=== PATIENT | male | born 1965 | race Caucasian/White ===

== ENCOUNTER → 2017-12-05 16:36 | Outpatient (CLI) | payer OTHER, SELFPAY ==
[2017-12-05 18:09] LABS: Absolute Lymphocyte Count 2.56 X10^3/ul (0.83-4.51); Absolute Neutrophil Count 3.7 X10^3/uL (2.0-7.7); Basophil# 0.02 X10^3/uL; Basophil% 0.3 % (0-1); Eosinophils% 1.4 % (0-5); Hematocrit 44.9 % (40-54); Lymphocyte # 2.56 X10^3/ul (4.0); Lymphocyte % 36.4 % (19-41); Mean Corp Hgb Conc 33.4 g/gl (32-36); Mean Corpuscular Hgb 30.2 pg (27.0-32.0); Mean Corpuscular Volume 90.5 fL (80-94); Monocyte# 0.68 X10^3/uL; Monocyte% 9.7 % (0-10); Neutrophil # 3.66 X10^3/uL (2.7-7.7); Neutrophil % 52.1 % (47-70); Platelet Count 262 K/mm3 (150-450); RBC Distribution Width CV 12.9 % (11.6-14.6); RBC Distribution Width SD 42.2 fl (35.1-43.9); Red Blood Count 4.96 M/mm3 (4.6-6.2)
[2017-12-05 18:11] LABS: POSITIVE COUNT NO; POSITIVE DIFFERENTIAL NO; POSITIVE MORPHOLOGY NO
[2017-12-05 18:31] LABS: ALB/GLOB Ratio 1.2 RATIO (0.9-2.4); AST(SGOT) 20 U/L (15-37); Alanine Aminotransfer ALT/SGPT 24 U/L (16-61); Albumin, Serum 4.1 g/dL (3.2-5.0); Alkaline Phosphatase 81 U/L (45-117); Anion Gap 8 (5-15); BUN 15 mg/dL (7-18); BUN/Creat Ratio 14.3 RATIO (10-20); Calcium,Total 9.2 mg/dL (8.5-10.1); Chloride 103 mmol/L (98-107); Cholesterol 131 mg/dL (200); Creatinine, Serum 1.05 mg/dL (0.70-1.30); EST Glomerular Filtration Rate 79 mL/min (>60); Est Glom Filt Rate - Afr Amer 95 mL/min (>60); Globulin 3.5 g/dL (2.2-4.2); Glucose 79 mg/dL (74-106); High Density Lipoprotein 41 mg/dL; Potassium 3.8 mmol/L (3.5-5.1); Protein, Total 7.6 g/dL (6.4-8.2); Sodium Level 139 mmol/L (136-145); Triglycerides 139 mg/dL; Very Low Density Lipoprotein 28 mg/dL (5-40)
== END ==
PROVIDERS: Family Provider Family Medicine; PCP Family Medicine; Visit Provider Family Medicine
DX: Z00.00 Encounter for general adult medical examination without abnormal findings (principal); Z12.5 Encounter for screening for malignant neoplasm of prostate
CPT/HCPCS: 36415; 80053; 80061; 84153; 85025; G0103

== ENCOUNTER 2017-12-22 08:04 | Day surgery (SDC) | payer OTHER, SELFPAY ==
[2017-12-22 08:30] VITALS: BP 143/83; PULSE 82; RESP 18; TEMP 36.3; O2SAT 100; BMI 25.8
--- NOTE | 2017-12-22 09:09 | H&P.OPEN ---
Past Medical/Surgical History - Planned Operation Planned Operative Procedure/s: COLONOSCOPY Date of Operative Procedure: 12/22/17 Permit Signed: Yes S.O.S: No Is This Patient Having a Total Joint: No - Previous Hospitalizations/Surgeries HX of Surgeries: APPY. WRIST Any Problems With Anesthesia: No You/Your Family Experience Fever (Hyperthermia) With Anes: No Cholinesterase deficiency: No - Cardiovascular Hx Chest Pain within Last 2 months: No Hx of Irregular Heartbeat and/or Afib: No Hx Heart Attack: No Hx Congestive Heart Failure: No Hx Rheumatic Fever: No Hx Hypertension: No Hx Internal Defibrillator: No Hx Pacemaker: No Hx Cardiac Catheterization: No Hx Cardiac Surgery/Stents/Etc.: No Hx Stress Test: No HX Edema: No Hx Pain in Legs when Walking/Leg Cramps: No - Respiratory Chronic Cough: No HX of Shortness of Breath: No Hoarseness: No Hx Chronic Obstructive Pulmonary Disease (COPD): No Hx Asthma: No Hx Emphysema: No Hx Sleep Apnea: No Hx Oxygen Use at Home: No Hx Respiratory Tract Infection/Cold (presently): No Do You Snore Loudly (louder than talking or can be heard): No Do You Often Feel Tired/ Fatigued/ Sleepy Dring Daytime?: No Has Anyone Observed You Stop Breathing During Sleep?: No Result (for STOP score): Negative Hx Smoking: No Smoking Status: Never smoker - Gastrointestinal Hx Gastroesophageal Reflux: No Hx Gastrointestinal Disorders: No Hx Gastrointestinal Bleed: No Hx Ulcer: No Hx Hiatal Hernia: No Difficulty Chewing/Swallowing: No Recent Onset of Swallowing Problems: No Special diet followed at home: No Hx Unplanned Weight Loss of 20#: No HX Unplanned Weight Gain of 20#: No - Neurological Hx Seizures: No HX Syncope/Blackout Spells/Unconsciousness: No Hx CVA/Stroke: No Hx Transient Ischemic Attacks (TIA): No Hx Multiple Sclerosis: No Hx Parkinson's Disease: No Hx Head/Neck Injury: No Hx Headaches: No Hx Back Injury/Pain: No Recent Onset of Speech Difficulty: No Restless Legs: No Does patient have nerve stimulator: No - Blood Disorder Hx Leukemia: No Bleeding Tendencies: No Hx Deep Vein Thrombosis: No Hx High Cholesterol: No Blood Transmitted Disease: No Hx Hepatitis: No Hx Cirrhosis: No Hx Anemia: No Hx Blood Disorders: No - Genitourinary Hx Renal Disease: No - Musculoskeletal Hx Arthritis: Yes - GENERALIZED Hx Rheumatoid Arthritis: No Hx Gout: No Recent Onset of an Orthopedic Problem: No - Endocrine Hx Diabetes: No Thyroid Disease: No Hx Steroid Therapy: No - Psycho/Social Hx Substance Use: No Hx Alcohol Use: No Hx Anxiety: No Hx Depression: No Mental Illness: No Hx Dementia: No - Miscellaneous Hx Cancer: No Recent Exposure to Contagious Disease: No Active MRSA: No Hx of C-Diff: No Any Loose Teeth: No Allergies No Known Allergies Allergy (Verified 06/19/16 23:12) Home Medications Medication Instructions Recorded None 12/22/17 - Discharge Is Pt Admitted From a Group Home, or a Intermediate: No Who Could Help: -AZAEL After D/C, Where Do you Plan to Go: Return Home - Physical Exam General: Alert, Oriented x3, Cooperative Neck: Supple Lungs: Normal air movement Cardiovascular: Regular rate, Regular Rhythm Abdomen: Soft, Non Tender, Non-Distended Vital Signs Temp Pulse Resp BP Pulse Ox 97.4 F L 82 18 143/83 H 100 12/22/17 08:30 12/22/17 08:30 12/22/17 08:30 12/22/17 08:30 12/22/17 08:30 Oxygen Delivery Method Room Air Weight: 165 lb Body Mass Index (BMI) 25.8 Assessment/Plan 52-year-old male for screening colonoscopy. 1. Patient reports he is having no issues at this time. He reports no abdominal pain or blood in his stool. He has no family history of colon cancer. He has never had a colonoscopy in the past. 2. I explained endoscopy in detail to the patient. I explained the risks including but not limited to stroke or heart attack with anesthesia, perforation of the GI tract, bleeding, infection. I explained that any of these could necessitate further emergency surgery. The patient understands and all questions were answered sufficiently. The patient wishes to proceed with procedure. Eb Peña MD Pager: [facility] [address] [place] [address], [address] [place] [address] Office: Surgery Risks - Colonoscopy Risks Include but are not Limited To: Risks include but are not limited to: Bleeding, perforation requiring further surgery, inability to complete colonoscopy requiring barium enema.
[2017-12-22 09:38] VITALS: BP 125/85; BP 143/83; PULSE 90; RESP 18; TEMP 36.1; O2SAT 100
[2017-12-22 09:43] VITALS: BP 128/94; BP 143/83; PULSE 85; RESP 18; O2SAT 100
[2017-12-22 09:48] VITALS: BP 118/85; BP 143/83; PULSE 79; RESP 18; O2SAT 100
[2017-12-22 09:52] VITALS: BP 141/85; BP 143/83; PULSE 77; RESP 18; TEMP 36.3; O2SAT 100
[2017-12-22 10:02] VITALS: BP 143/83
--- NOTE | 2017-12-22 10:46 | PCM.OPRPT ---
Problem List (1) Screening for colon cancer Status: Acute Report of Operation Date of Procedure: 12/22/17 Pre-Operative Diagnosis: Colon cancer screening Post-Operative Diagnosis: Normal colonoscopy Surgery/Procedure Performed:: Colonoscopy Specimen's removed: None Description of Procedure: The major risks and benefits associated with the procedure were explained to the patient in detail. The patient verbalized understanding and agreement with the same. The patient was brought to the endoscopy suite. After adequate sedation was achieved, the patient was placed in the left lateral decubitus position and a digital rectal exam was performed. This examination was within normal limits. A well-lubricated colonoscope was then inserted into the rectum and advanced under direct visualization to the level of the cecum. The bowel prep was good. The cecum was identified by both visual and anatomic landmarks. A photograph was taken of the end of the cecum. The scope was then fully withdrawn while examining the color, texture, anatomy and integrity of the mucosa from the cecum to the anal canal. The findings were consistent with normal colonic mucosa. Over 6 minutes were taken to examine the colonic mucosa. Upon reaching the rectum the scope was retroflexed to examine the distal rectal vault. The scope was then straightened and was completely retrieved upon exiting the anal canal and the procedure was terminated. The patient was then transferred to the recovery room in stable condition. Recommendations for follow up: 10 years
== END 2017-12-22 10:06 | disposition home or self-care (01) ==
LOC: EN 08:07 → AC 08:08
PROVIDERS: Family Provider Family Medicine; PCP Family Medicine; Visit Provider Surgery
PROC: 0DJD8ZZ Inspection of Lower Intestinal Tract, Via Natural or Artificial Opening Endoscopic (ICD-10-PCS; CPT 45378; principal; 2017-12-22 09:10)
DX: Z12.11 Encounter for screening for malignant neoplasm of colon (principal); M15.9 Polyosteoarthritis, unspecified
CPT/HCPCS: 45378; J7120

== ENCOUNTER → 2019-01-05 09:01 | Outpatient (CLI) | payer OTHER, SELFPAY ==
[2019-01-05 09:34] LABS: Absolute Lymphocyte Count 1.82 X10^3/ul (0.83-4.51); Absolute Neutrophil Count 2.5 X10^3/uL (2.0-7.7); Basophil# 0.03 X10^3/uL; Basophil% 0.6 % (0-1); Eosinophil# 0.14 X10^3/uL; Eosinophils% 2.8 % (0-5); Hematocrit 44.5 % (40-54); Hemoglobin 15.5 g/dl (13.0-16.5); Lymphocyte # 1.82 X10^3/ul (4.0); Lymphocyte % 35.8 % (19-41); Mean Corp Hgb Conc 34.8 g/gl (32-36); Mean Corpuscular Hgb 30.2 pg (27.0-32.0); Mean Corpuscular Volume 86.7 fL (80-94); Mean Platelet Vol. 9.7 fl (6.2-12.0); Monocyte# 0.56 X10^3/uL; Neutrophil # 2.52 X10^3/uL (2.7-7.7); Neutrophil % 49.6 % (47-70); Platelet Count 251 K/mm3 (150-450); RBC Distribution Width SD 40.4 fl (35.1-43.9); Red Blood Count 5.13 M/mm3 (4.6-6.2); White Blood Count 5.1 K/mm3 (4.4-11.0)
[2019-01-05 09:35] LABS: POSITIVE COUNT NO; POSITIVE DIFFERENTIAL NO; POSITIVE MORPHOLOGY NO
[2019-01-05 10:00] LABS: PSA,Total - Annual Screen 0.71 ng/mL (0.00-4.00)
== END ==
PROVIDERS: Family Provider Family Medicine; PCP Family Medicine; Referring Provider Family Medicine; Visit Provider Family Medicine
DX: Z00.00 Encounter for general adult medical examination without abnormal findings (principal); Z12.5 Encounter for screening for malignant neoplasm of prostate
CPT/HCPCS: 36415; 84153; 85025; G0103

== ENCOUNTER 2019-11-19 10:22 | Emergency (ER) | payer OTHER, SELFPAY ==
[2019-11-19] VITALS (7 sets, daily range): BP systolic 136–143; BP diastolic 86–100; PULSE 76–91; RESP 14–18; TEMP 36.1; O2SAT 97–99; BMI 28.7
--- NOTE | 2019-11-19 10:37 | EKG12_ITS ---
Test Reason : CP Blood Pressure : / mmHG Vent. Rate : 086 BPM Atrial Rate : 086 BPM P-R Int : 148 ms QRS Dur : 088 ms QT Int : 334 ms P-R-T Axes : 036 034 040 degrees QTc Int : 399 ms Normal sinus rhythm Normal ECG Confirmed by RYAN DAVISON, LYNETTE ([id number]), editor farm journal MAY WHIPPLE ([id number]) on 11/21/2019 10:31:08 AM Referred By: RAMESH/LYN Confirmed By:LYNETTE DAVIS MD
--- NOTE | 2019-11-19 10:37 | ED.VIS.CHEST ---
History of Present Illness Chief Complaint: Chest Pain Informant: Patient Quality: Burning, Pain Location: Right Chest, Left Chest Current Severity: Moderate Narrative: Patient presents the emergency department for the evaluation of chest pain. Patient states that on Monday evening he went for a walk with his for about a half a mile he developed a burning sensation across the anterior aspect of his chest. He took his blood pressure and the diastolic number was around 100-1 05. He remembered that a couple years ago he was hospitalized at [place] with similar symptoms and after a negative stress test was felt that his symptoms were related to his hypertension. Therefore he took an extra dose of his blood pressure medication and got better. It has been intermittently present yesterday but today at 0600 when he was getting ready for work he developed the same sensation is now been constant pain for 4.5 hours. Addition to the burning sensation across the anterior chest he feels a pain which she states is difficult to describe in the left axilla. He has a history of hypertension. He notes his cholesterol was checked in the past and was normal. He is a non-smoker. He does not live a sedentary lifestyle. Nothing he does seem to make the pain better or worse. No PE DVT risk factor. No history of aortic dissection or aneurysm. Past Medical History - Allergies and Home Meds Allergies/Adverse Reactions: Allergies No Known Allergies Allergy (Verified 11/19/19 10:22) Primary Care Physician: Martin Ratliff DO [Primary Care Provider] - Smoking Status: Never smoker Review of Systems General: Denies: Chills, Fever, Sweats Eyes: Denies: Visual changes - bilaterally, Diplopia ENT: Denies: Rhinorrhea, Sore throat Cardiovascular: Reports: Chest pain. Denies: Palpitations Respiratory: Denies: Dyspnea, Cough, Dyspnea on exertion Gastrointestinal: Denies: Abdominal pain, Nausea, Vomiting, Diarrhea, Melena, Hematochezia Genitourinary: Denies: Dysuria, Hematuria, Frequency Musculoskeletal: Denies: Back pain, Extremity Pain Skin: Denies: Rash, Wounds Neurological: Denies: Headache, Weakness, Numbness Physical Exam Vital Signs/Narrative: Vital Signs Temp Pulse Resp BP Pulse Ox 11/19/19 10:23 97 F L 91 15 143/100 H 97 Inital Vital Signs reviewed: Yes General: Well nourished, Well developed, No Acute Distress Head: Normocephalic, Atraumatic Eyes: Perrl, EOMI ENT: Moist mucous membranes, No rhinorrhea Neck: Supple, Nontender Cardiovascular: Regular rate, Regular rhythm, No murmurs Respiratory: No distress, CTA bilaterally, Chest nontender Abdomen: Soft, Nontender, Nondistended, Normal bowel sounds Back: Nontender, Normal Inspection Extremities: Nontender, No edema Skin: Normal color, No rash Neurological: Alert, Oriented x3, Cranial nerves II-XII grossly intact, Normal Strength, Normal Sensation Psychological: Normal affect, Normal Mood Diagnostic/Tx/Re-eval - EKG Initial EKG Interpretation: Sinus Rhythm - EKG shows a normal sinus rhythm at a rate of 86 without ectopy or concerning features for ACS. This is compared to an EKG dated 12 August 2011. No significant changes JACQUE Risk: No Positive JAQCUE Elements Score: 0 - Medical Decision Making Patient was watched on the monitor is had no events. His chest x-ray shows a normal mediastinal silhouette, no evidence of pneumothorax or infiltrates. No evidence of mediastinitis. D-dimer is in the normal range. 2 sets of cardiac enzymes the second being drawn 6 hours from the onset of symptoms were negative. His blood pressures come down now 136/95. He has had some improvement in the burning across his chest but no resolution. I spoke with Dr. Ratliff. He notes that the patient is taking 50 mg of metoprolol once a day. Patient Monday as well as today took a total of 100 does not feel sluggish or any negative side effects. We are going to have the patient to record his blood pressure over the next week and call with those results. He may call earlier if his blood pressure is out of control. Return if worsening or concerns. ED Disposition - Plan for ED Patient: Diagnosis: Chest pain, Hypertension Instructions: ED Chest Pain Atypical Unkn Cause, ED Hypertension Established Referrals: Martin Ratliff DO [Primary Care Provider] - Additional Instructions: Your blood pressure was elevated today. In discussing with your physician we are going to have you monitor your blood pressure for the next week and record it each day. Please also record the time that you take it in which arm. Please call your doctor next week with these results. If however you are finding that your blood pressure is significantly elevated you may call earlier than 1 week. But at this time we do not wish to make any adjustments to that medication.
--- NOTE | 2019-11-19 10:45 | RAD_ITS ---
STUDY: X-RAY CHEST REASON FOR EXAM: Male, 54 years old. CP SINCE MONDAY. BURNING SENSATION ACROSS CHEST AND NEEDLING FEELING UNDER LEFT ARM. DIZZINESS TECHNIQUE: Single AP portable view of the chest. COMPARISON: Comparison is made with prior examination dated August 12, 2011. FINDINGS: EKG electrodes are seen. The lungs are clear and expanded. Scattered calcified granulomas. No acute abnormality is seen. There is no demonstrated pleural abnormality. Normal size heart. Normal mediastinum and gibran. Normal visualized pulmonary arteries. Normal visualized aortic arch and descending thoracic aorta. Normal visualized thoracic spine. Normal visualized ribs, clavicles, and shoulders. There is no demonstrated abnormality of the visualized soft tissue structures of the upper abdomen. RAD/Chest 1 View (Portable) IMPRESSION: No acute abnormality is seen. Electronically Signed: Nahid Mendoza, at 11:29 EDT , Service support ,
[2019-11-19 10:47] LABS: Absolute Lymphocyte Count 1.58 X10^3/uL (0.83-4.51); Absolute Neutrophil Count 3.3 X10^3/uL (2.0-7.7); Basophil# 0.03 X10^3/uL; Basophil% 0.5 % (0-1); Eosinophil# 0.09 X10^3/uL; Eosinophils% 1.6 % (0-5); Hematocrit 46.3 % (40-54); Hemoglobin 15.6 g/dL (13.0-16.5); Lymphocyte # 1.58 X10^3/ul (4.0); Lymphocyte % 28.5 % (19-41); Mean Corp Hgb Conc 33.7 g/dL (32-36); Mean Corpuscular Hgb 30.3 pg (27.0-32.0); Mean Corpuscular Volume 89.9 fL (80-94); Mean Platelet Vol. 9.4 fl (6.2-12.0); Monocyte# 0.53 X10^3/uL; Monocyte% 9.6 % (0-10); NRBC Flagged by Analyzer 0 % (0-5); Neutrophil # 3.28 X10^3/uL (2.7-7.7); Neutrophil % 59.3 % (47-70); Platelet Count 252 K/mm3 (150-450); RBC Distribution Width CV 12.2 % (11.6-14.6); RBC Distribution Width SD 40.2 fl (35.1-43.9); Red Blood Count 5.15 M/mm3 (4.6-6.2); White Blood Count 5.5 K/mm3 (4.4-11.0)
[2019-11-19 10:55] LABS: D-Dimer Quantitative (DVT/PE) 0.28 FEU/ug/m (0.27-0.49)
[2019-11-19 10:59] LABS: Anion Gap 5 (5-15); BUN 13 mg/dL (7-18); BUN/Creat Ratio 16.7 RATIO (10-20); Calcium,Total 9.2 mg/dL (8.5-10.1); Chloride 106 mmol/L (98-107); Creatinine, Serum 0.78 mg/dL (0.70-1.30); EST Glomerular Filtration Rate 110 mL/min (>60); Est Glom Filt Rate - Afr Amer 133 mL/min (>60); Estimated Creatinine Clearance 100.04 ml/min; Glucose 101 mg/dL (74-106); Potassium 4.1 mmol/L (3.5-5.1); Sodium Level 138 mmol/L (136-145)
== END 2019-11-19 13:15 | disposition home or self-care (01) ==
PROVIDERS: Emergency Provider Emergency Medicine; PCP Family Medicine
DX: R07.9 Chest pain, unspecified (principal); I10 Essential (primary) hypertension
CPT/HCPCS: 71045; 80048; 84484; 85025; 85379; 93005; 99284; A4216

== ENCOUNTER 2021-11-08 04:23 | Emergency (ER) | payer OTHER, SELFPAY ==
[2021-11-08 04:25] VITALS: BP 144/101; PULSE 112; RESP 15; TEMP 36.4; O2SAT 98; BMI 28.8
--- NOTE | 2021-11-08 04:50 | EKG12_ITS ---
Test Reason : GEN ILL Blood Pressure : / mmHG Vent. Rate : 097 BPM Atrial Rate : 097 BPM P-R Int : 146 ms QRS Dur : 088 ms QT Int : 340 ms P-R-T Axes : 038 052 051 degrees QTc Int : 431 ms Normal sinus rhythm Normal ECG Confirmed by RYAN DAVISON, LYNETTE ([id number]), editor farm journal CRUZ BARONE ([id number]) on 11/10/2021 11:31:13 AM Referred By: HINA Confirmed By:LYNETTE DAVIS MD
[2021-11-08] MEDS: Labetalol (Prefilled) 20 MG/4 ML IV (05:02)
[2021-11-08 05:04] LABS: Absolute Lymphocyte Count 0.96 X10^3/uL (0.83-4.51); Absolute Neutrophil Count 11.1 X10^3/uL (2.0-7.7); Basophil# 0.05 X10^3/uL; Basophil% 0.4 % (0-1); Eosinophil# 0.11 X10^3/uL; Eosinophils% 0.8 % (0-5); Hematocrit 46.6 % (40-54); Lymphocyte # 0.96 X10^3/ul (0.83-4.51); Lymphocyte % 7.4 % (19-41); Mean Corp Hgb Conc 34.3 g/dL (32-36); Mean Corpuscular Hgb 30.6 pg (27.0-32.0); Mean Corpuscular Volume 89.1 fL (80-94); Mean Platelet Vol. 9.8 fl (6.2-12.0); Monocyte# 0.73 X10^3/uL; Monocyte% 5.6 % (0-10); NRBC Flagged by Analyzer 0 % (0-5); Neutrophil # 11.07 X10^3/uL (2.7-7.7); Neutrophil % 85.3 % (47-70); Platelet Count 273 K/mm3 (150-450); RBC Distribution Width CV 12.5 % (11.6-14.6); RBC Distribution Width SD 41.1 fl (35.1-43.9); Red Blood Count 5.23 M/mm3 (4.6-6.2)
[2021-11-08 05:05] VITALS: BP 138/94; PULSE 100; RESP 14; O2SAT 99
--- NOTE | 2021-11-08 05:17 | RAD_ITS ---
EXAM: X-ray chest PA and lateral. HISTORY: hypertension TECHNIQUE: XR Chest 2 Views COMPARISON: Portable upright exam November 19, 2019. LIMITATIONS: None. HEART: Normal size. TUBES/LINES: None. LUNGS: Normal. PLEURA: Normal. MEDIASTINUM: Normal. BONES/SOFT TISSUES: Normal. OTHER: Normal. IMPRESSION: Normal chest. Electronically Signed: Maliha Issa MD at 5:41 EDT , RAD/Chest PA and Lateral
[2021-11-08 05:21] LABS: Anion Gap 6 (5-15); BUN 14 mg/dL (7-18); BUN/Creat Ratio 14.1 RATIO (10-20); Chloride 107 mmol/L (98-107); Creatinine, Serum 0.99 mg/dL (0.70-1.30); EST Glomerular Filtration Rate 83 mL/min (>60); Est Glom Filt Rate - Afr Amer 100 mL/min (>60); Estimated Creatinine Clearance 76.97 ml/min; Glucose 136 mg/dL (74-106); Potassium 3.8 mmol/L (3.5-5.1); Sodium Level 139 mmol/L (136-145); Troponin-I HS < 3 pg/mL (3.0-78.0)
--- NOTE | 2021-11-08 05:34 | EX.ED.DYSGE1 ---
HPI History of Present Illness Chief Complaint: General Illness Narrative Narrative: Patient is a 56-year-old male with past medical history of hypertension. He states he starts work early at 3:30 in the morning. He reports he got up as he normally does and went to work this morning. 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 He states that he stopped and symptoms resolved however once he tried stacking boxes the flushed/warm sensation occurred again. He states he checked his blood pressure and it was elevated. He reports a history of hypertension but states that he took his medications approximately an hour prior to arrival. He denies any chest pain or shortness of breath associated with this he denies any sick symptoms. However because he had that flushing sensation with exertion and his pressure was elevated he presents to the hospital for evaluation [facility] Home Medications metoprolol tartrate 50 mg PO DAILY 11/19/19 [History Last Taken Unknown] lisinopril 10 mg PO DAILY 11/08/21 [History Last Taken Unknown] Allergy/AdvReac Type Severity Reaction Status Date / Time No Known Allergies Allergy Verified 11/08/21 04:28 Social History Smoking Status: Never smoker [facility] ED Constitutional Constitutional ED: Denies chills or fever(s) ENT ENT ED: Denies sore throat Cardiovascular Cardiovascular: Denies chest pain Respiratory/Chest Respiratory/Chest: Denies cough or dyspnea Gastrointestinal Gastrointestinal: Denies abdominal pain, diarrhea, nausea or vomiting Genitourinary Genitourinary ED: Denies dysuria Musculoskeletal Musculoskeletal: Denies myalgias Integumentary Denies rash Neurologic Neurologic: Denies headache(s) Hematologic/Lymphatic Hematologic/Lymphatic: Denies easy bleeding or easy bruising EXAM Physical Exam Const Vital Signs: 11/08/21 04:25 11/08/21 04:32 11/08/21 05:05 Temperature 97.5 F L Temperature Source Temporal Pulse Rate 112 H 100 Respiratory Rate 15 14 Respiratory Effort Normal Non-Labored Respiratory Pattern Normal Blood Pressure 144/101 H 138/94 H Blood Pressure Mean 115 108 Pulse Ox 98 99 Oxygen Delivery Method Room Air Room Air 11/08/21 05:53 Temperature Temperature Source Pulse Rate 99 Respiratory Rate 15 Respiratory Effort Respiratory Pattern Blood Pressure 124/77 H Blood Pressure Mean 92 Pulse Ox 97 Oxygen Delivery Method Room Air Positive well nourished and well developed General Appearance ED: well developed HEENT Reports moist mucous membranes Eyes PERRL and EOMs intact bilaterally Neck supple Chest Wall palpation of chest normal Resp normal respiratory effort and clear to auscultation bilaterally Cardio regular rhythm Rate: tachycardic and other Other Details: Radial pulses are +2-4 bilaterally are equal and symmetric GI non-tender and non-distended Auscultation: normoactive bowel sounds Palpation: soft Extremity normal to inspection Neuro oriented x3 and CN's II-XII intact bilaterally Sensorium / Orientation: alert Psych mental status grossly normal Skin no rashes or lesions noted MDM MDM MDM Narrative Medical decision making narrative: Patient presented to the ER mildly hypertensive and slightly tachycardic but afebrile. He had a normal neurologic exam as well as no physical exam or history findings concerning for endorgan damage. He reported a flushing or warm sensation throughout his body with exertion which is nonspecific and he has had no sick symptoms. Therefore at this time as the patient's blood pressure is elevated I did feel need to check for signs of endorgan damage or atypical presentation for cardiac event. The patient's white count is elevated at 13 which could just be stress response as there is no left shift. He has no signs of acute kidney injury and his troponin and EKG are normal. Because of the elevated white count a chest x-ray was obtained even though patient is not coughing and it showed no obvious infection. Patient was given mild hydration and labetalol and did have improvement of his blood pressure and heart rate. Therefore at this time with no signs of endorgan damage by exam and work-up do not feel there is need for continued evaluation in the ER and patient can be discharged home at this time Lab Data Attestation: I reviewed the patient's lab results. Labs: Laboratory Results - last 24 hr 11/08/21 11/08/21 04:40 04:40 WBC 13.0 H RBC 5.23 Hgb 16.0 Hct 46.6 MCV 89.1 MCH 30.6 MCHC 34.3 RDW Std Deviation 41.1 RDW Coeff of Allen 12.5 Plt Count 273 MPV 9.8 Immature Gran % (Auto) 0.500 Neut % (Auto) 85.3 H Lymph % (Auto) 7.4 L [place] % (Auto) 5.6 Eos % (Auto) 0.8 Baso % (Auto) 0.4 Absolute Neuts (auto) 11.1 H Absolute Lymphs (auto) 0.96 Nucleated RBC % 0 Sodium 139 Potassium 3.8 Chloride 107 Carbon Dioxide 26.0 Anion Gap 6 BUN 14 Creatinine 0.99 Estim Creat Clear Calc 76.97 Est GFR (MDRD) Af Amer 100 Est GFR (MDRD) Non-Af 83 BUN/Creatinine Ratio 14.1 Glucose 136 H Calcium 9.0 Troponin I High Sens < 3 L Radiography Diagnostic Testing: Clinical Impression(s) from Imaging Studies Chest X-Ray 11/08/21 05:17 Chest x-ray read by the emergency medicine physician shows no acute infiltrate pneumothorax or pleural effusion Discharge Plan Triage Chief Complaint: General Illness ED Provider: Michael Perez Dx/Rx/DC Orders Clinical Impression: Accelerated hypertension Instructions: ED Hypertension, Established Prescriptions: No Action metoprolol tartrate 50 MG tablet 50 mg PO DAILY RF: 0 lisinopril 10 mg Tablet 10 mg PO DAILY RF: 0 Stand Alone Forms: ED Work / School Excuse Primary Care Provider: Martin Ratliff Referrals: Martin Ratliff, [Primary Care Provider] - Disposition Disposition: Home, Self Care
[2021-11-08 05:53] VITALS: BP 124/77; PULSE 99; RESP 15; O2SAT 97
[2021-11-08 06:16] VITALS: BP 136/96; PULSE 97; RESP 15
== END 2021-11-08 06:17 | disposition home or self-care (01) ==
PROVIDERS: Emergency Provider Emergency Medicine; PCP Family Medicine; Visit Provider Emergency Medicine
DX: I10 Essential (primary) hypertension (principal); Z79.899 Other long term (current) drug therapy
CPT/HCPCS: 71046; 80048; 84484; 85025; 93005; 96361; 96374; 99282; J7040; A4216

== ENCOUNTER → 2022-08-05 | Outpatient (CLI) | payer OTHER, SELFPAY ==
--- NOTE | 2022-08-05 13:27 | RAD_ITS ---
INDICATION: Right shoulder pain, limited range of motion, fell on it 3 weeks ago EXAMINATION/TECHNIQUE: X-RAY - RIGHT XR Shoulder Min 2 Views: AP, internal rotation, external rotation and scapular Y views COMPARISON: Two-view chest x-ray from 11/08/2021 FINDINGS: SOFT TISSUES: No significant soft tissue swelling. No radiopaque foreign body detected. BONES/JOINTS: No acute fracture or subluxation. Normal alignment. Preservation of the joint space(s). Mild acromioclavicular osteophytosis. Small, benign chronic calcified body again noted just below scapular coracoid process. RAD/Shoulder min 2 Views IMPRESSION: Mild right acromioclavicular osteoarthritis. Electronically Signed: Martin Chandler MD at 0:01 EST ,
== END | disposition home or self-care (01) ==
LOC: MTRAD 13:26
PROVIDERS: PCP Family Medicine; Referring Provider Family Medicine; Visit Provider Family Medicine
DX: M25.511 Pain in right shoulder (principal)
CPT/HCPCS: 73030

== ENCOUNTER → 2023-02-28 | Outpatient (CLI) | payer OTHER, SELFPAY | END | disposition home or self-care (01) | PROVIDERS: PCP Family Medicine; Referring Provider Family Medicine; Visit Provider Family Medicine | DX: G47.30 Sleep apnea, unspecified (principal); G47.10 Hypersomnia, unspecified | CPT/HCPCS: 95806 ==

== ENCOUNTER → 2023-03-23 | Outpatient (CLI) | payer OTHER, SELFPAY | END | disposition home or self-care (01) | LOC: SL 11:40 | PROVIDERS: PCP Family Medicine; Visit Provider Family Medicine | DX: R69 Illness, unspecified (principal) ==

== ENCOUNTER → 2023-03-30 | Outpatient (CLI) | payer OTHER, SELFPAY | END | disposition home or self-care (01) | LOC: SL 12:16 | PROVIDERS: PCP Family Medicine; Referring Provider Family Medicine; Visit Provider Family Medicine | DX: R69 Illness, unspecified (principal) ==